=== PATIENT | female | born 1975 | race Caucasian/White ===

== ENCOUNTER 2017-12-13 19:35 | Emergency (ER) | payer OTHER ==
[~2017-12-13] VITALS: Ht 152.4 cm; Wt 30.8 kg
== END 2017-12-13 23:15 | disposition home or self-care (01) ==
LOC: ER 19:35
DX: R10.2 Pelvic and perineal pain (principal)

== ENCOUNTER 2018-02-24 07:30 | Outpatient (CLI) | payer OTHER | END 2018-02-24 07:43 | disposition home or self-care (01) | LOC: RAD 07:30 → MAMO-SONO 10:15 | DX: Z12.31 Encounter for screening mammogram for malignant neoplasm of breast (principal); Z87.898 Personal history of other specified conditions; N60.11 Diffuse cystic mastopathy of right breast; N60.12 Diffuse cystic mastopathy of left breast; R10.32 Left lower quadrant pain; I10 Essential (primary) hypertension; M32.0 Drug-induced systemic lupus erythematosus; M16.0 Bilateral primary osteoarthritis of hip; M54.5 Low back pain; M62.830 Muscle spasm of back; M46.1 Sacroiliitis, not elsewhere classified ==

== ENCOUNTER 2018-09-28 10:10 | Emergency (ER) | payer OTHER ==
[~2018-09-28] VITALS: Ht 154.9 cm; Wt 40.8 kg
== END 2018-09-28 16:02 | disposition home or self-care (01) ==
LOC: ER 10:10
DX: K52.89 Other specified noninfective gastroenteritis and colitis (principal); R20.0 Anesthesia of skin

== ENCOUNTER 2020-09-11 17:24 | Emergency (ER) | payer OTHER ==
[~2020-09-11] VITALS: Ht 152.4 cm; Wt 30.8 kg
== END 2020-09-11 21:02 | disposition home or self-care (01) ==
LOC: ER 17:24
DX: N20.0 Calculus of kidney (principal); R10.31 Right lower quadrant pain